=== PATIENT | female | born 1975 | race American Indian/Alaskan Native ===

== ENCOUNTER 2019-02-05 17:27 | Emergency (ER) | payer SELFPAY ==
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
[2019-02-05] MEDS ORDERED: KETOROLAC 30 MG/1 ML INJ IM ONE (21:42)
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
[2019-02-05 22:24] VITALS: BP 170/120
== END 2019-02-05 22:20 | disposition home or self-care (01) ==
LOC: ED 17:27
DX: M54.5 Low back pain (principal); V89.0XXA Person injured in unspecified motor-vehicle accident, nontraffic, initial encounter; Y93.89 Activity, other specified; Y92.410 Unspecified street and highway as the place of occurrence of the external cause; Y99.8 Other external cause status
CPT/HCPCS: 96372; 99282; J1885